=== PATIENT | female | born 2005 | race African-American/Black ===

== ENCOUNTER 2025-06-20 07:48 | Observation (INO) ==
--- NOTE | 2025-06-20 08:00 | Emergency Department Note ---
Impression & Plan Prolonged QT interval, Hypophosphatemia, Hypomagnesemia, Hypokalemia due to excessive gastrointestinal loss of potassium ED Provider Note NAME: GILLIAN CHILDS AGE: 19 SEX: F : 2005 ARRIVES VIA: Walk-In INFORMANT: Patient, ED PROVIDER(S): Tulio Ferreira MD CHIEF COMPLAINT: Nausea vomiting MEDICAL DECISION MAKING: Patient presents with the above. IV was established and blood work was obtained. Patient was ordered IV Zofran and IV fluids. Patient received ice chips. Patient was bradycardic but not complaining of any dizziness and blood pressure is normal. IV was established and blood work was obtained and an EKG was eventually ordered. Patient with a normal white count hemoglobin and platelet count kidney function is unremarkable. Patient with hypokalemia noted. Patient's EKG did show QT prolongation. Magnesium and phosphorus ordered. Patient was ordered IV potassium chloride for replacement. Hypomagnesemia and hypophosphatemia noted. Deferring phosphorus replacement until potassium and mag completed. The patient was ordered 2 g of IV magnesium. Troponin also added negative. Urinalysis does show ketones but does not show signs of obvious infection. Whites and bacteria noted but numerous epithelial cells the patient does not complain of any lower abdominal pain. UDS positive for marijuana. Given the patient's electrolyte abnormalities and QTc prolongation I did speak to on-call hospitalist service patient was admitted by Dr. Chow. Of note the patient's EKG did show some diffuse mild ST elevation but the patient does not have chest pain or shortness of breath patient's troponin is not elevated. Do not believe that this is an acute STEMI at this time. Could be pericarditis but the patient does not complain of chest pain. Discussion w/ other healthcare providers: Dr. Chow inpatient medicine service Prior /Outside records reviewed: none Differential diagnosis: Gastroenteritis, food borne illness, infection, appendicitis, diverticulitis, inflammatory bowel disease, obstruction among others were considered. Diagnostics, as interpreted by me: ECG: Sinus bradycardia, rate of 46, prolonged QT, normal axis, T wave inversions anteriorly. Patient does have trace elevations throughout no obvious STEMI. Cardiac monitoring: An order was placed for continuous cardiac monitoring. The monitor shows a rate of 56 with sinus rhythm. Patient was placed on pulse oximetry Medical decision rules: None Imaging studies: I informally interpreted the patient's KUB does not show evidence of obvious obstruction with formal report to follow. HPI: Patient presents due to concern for vomiting. The patient states that she developed some nausea and associated vomiting around 5 AM this morning. The patient does still feel nauseous. The patient did have 2 episodes of vomiting nonbloody. The patient does admit to drinking 1 alcoholic beverage last evening. She states that she had 1 alva. Denies any tobacco or drugs. She states that she does feel somewhat anxious. She states no recent stress and denies drinking more than 1 alcoholic beverage. Patient denies any upper respiratory symptoms or cough or fever. Patient denies any urinary symptoms. Last menstrual period was 2 weeks ago. She denies any falls or trauma. PAST MEDICAL HISTORY: Scoliosis PAST SURGICAL HISTORY: Spinal fusion surgery SOCIAL HISTORY: [employer] student. Uses alcohol socially. HOME MEDICATIONS: See Below ALLERGIES: See Below VITALS: See Below PHYSICAL EXAMINATION: GENERAL: Fatigued but nontoxic in appearance and in no apparent distress. EYE EXAM: Normal conjunctiva. PERRL, no anisocoria and EOM's grossly intact w/o pain. OROPHARYNX: Moist mucus membranes, grossly normal dentition. NECK: Trachea midline, no stridor. LUNGS: Clear to auscultation. Normal chest wall mechanics. HEART: Bradycardic, no MRG. ABDOMEN: Abdomen soft, non-tender, no masses, no rebound or guarding. BACK: No CVA TTP. SKIN: No rashes and no bruising. UPPER EXTREMITIES: Upper extremities are grossly normal. LOWER EXTREMITIES: Grossly normal, no edema. NEURO EXAM: Awake and alert, follows commands, no obvious facial asymmetry, normal speech, moves all 4 extremities. Past Med/Surg History Problem List (Updated 06/20/25 @ 15:41 by Tulio Ferreira MD) Prolonged QT interval (Acute) Hypophosphatemia (Acute) Hypomagnesemia (Acute) Hypokalemia due to excessive gastrointestinal loss of potassium (Acute) Cannabis use disorder, mild, abuse Intractable vomiting with nausea Surgical History History of lumbar fusion Social History Smoking Status: Current some day smoker Hx Alcohol Use: Yes Hx Substance Use: Yes Preferred Language: Samoan Current Living Situation Comment: [employer] student from [place], lives in the dorm Feels Safe at Home: Yes Do you think of yourself as: straight/heterosexual Sexual Activity Comment: No recent sexual activity within the past 4 weeks Allergies Allergies Allergy/AdvReac Type Severity Reaction Status Date / Time No Known Allergies Allergy Verified 05/02/23 10:00 Home Meds Home Medications Medication Instructions Recorded Confirmed ferrous sulfate 325 mg (65 mg 0 mg PO DAILY 05/02/23 06/20/25 iron) tablet omeprazole 20 mg capsule,delayed 0 mg PO DAILY 05/02/23 06/20/25 release Previous Rx's Medication Instructions Recorded ondansetron 4 mg disintegrating 4 mg PO Q6H PRN nausea and 05/02/23 tablet vomiting #20 tabs Results & Data (ED) Vital Signs Vital Signs - 24 hr 06/20/25 07:50 06/20/25 08:20 06/20/25 08:27 Pulse Rate 47 L Pulse Rate [Apical] 46 L Pulse Rate from SpO2 Sensor Pulse Rhythm Regular Respiratory Rate 18 16 Respiratory Effort / Characteristics Non-Labored Spontaneous Non-Labored Spontaneous Respiratory Depth Normal Normal Respiratory Pattern Regular Blood Pressure 128/93 Blood Pressure [Left Arm] 133/91 Blood Pressure Mean 104 Blood Pressure Mean [Left Arm] 105 Pulse Oximetry 100 99 Oxygen Delivery Method Room Air Room Air Room Air Sepsis Recent Fever Within 48 Hours No Sepsis New/Unexplained Change in Mental Status N/A Sepsis Action Taken by Nursing No Action Required 06/20/25 08:47 06/20/25 08:53 06/20/25 09:00 Pulse Rate 58 L 60 45 L Pulse Rate [Apical] Pulse Rate from SpO2 Sensor 54 L 46 L Pulse Rhythm Respiratory Rate 17 21 Respiratory Effort / Characteristics Respiratory Depth Respiratory Pattern Blood Pressure 123/76 106/61 Blood Pressure [Left Arm] Blood Pressure Mean 101 77 Blood Pressure Mean [Left Arm] Pulse Oximetry 99 100 Oxygen Delivery Method Room Air Room Air Sepsis Recent Fever Within 48 Hours Sepsis New/Unexplained Change in Mental Status Sepsis Action Taken by Nursing 06/20/25 09:00 06/20/25 09:30 06/20/25 09:45 Pulse Rate 39 L 58 L 46 L Pulse Rate [Apical] Pulse Rate from SpO2 Sensor 47 L 47 L Pulse Rhythm Respiratory Rate 12 21 12 Respiratory Effort / Characteristics Respiratory Depth Respiratory Pattern Blood Pressure 106/61 125/86 132/77 Blood Pressure [Left Arm] Blood Pressure Mean 77 99 94 Blood Pressure Mean [Left Arm] Pulse Oximetry 96 96 100 Oxygen Delivery Method Room Air Room Air Room Air Sepsis Recent Fever Within 48 Hours Sepsis New/Unexplained Change in Mental Status Sepsis Action Taken by [facility] Medications Current Medication List: was personally reviewed by me Laboratory Data Attestation: I reviewed the patient's lab results. 06/20/25 08:15 06/20/25 08:15 Lab Results 06/20/25 Range/Units 08:15 WBC 5.09 (4.8-10.8) K/ul RBC 4.41 (4.20-5.40) M/uL Hgb 12.9 (12.0-16.0) g/dl Hct 38.9 (37.0-47.0) % MCV 88.2 (80.0-100.0) fL MCH 29.3 (25.0-34.0) pg MCHC 33.2 (32.0-36.0) g/dL RDW Std Deviation 43.3 (36.4-46.3) fL RDW Coeff of Thomas 13.2 (11.5-14.5) % Plt Count 273 (130-400) K/uL MPV 9.3 L (9.4-12.4) fL Immature Gran % (Auto) 0.2 % Neut % (Auto) 46.7 % Lymph % (Auto) 39.1 % Boyd % (Auto) 12.4 % Eos % (Auto) 0.8 % Baso % (Auto) 0.8 % Neut # (Auto) 2.38 (1.40-6.50) K/uL Lymph # (Auto) 1.99 (1.20-3.40) K/uL Boyd # (Auto) 0.63 H (0.11-0.59) K/uL Eos # (Auto) 0.04 (0.00-0.50) K/uL Baso # (Auto) 0.04 (0.00-0.20) K/uL Immature Gran # (Auto) 0.01 (0.01-0.20) K/uL Sodium 137 (136-145) mmol/L Potassium 3.2 L (3.5-5.1) mmol/L Chloride 104 (98-107) mmol/L Carbon Dioxide 22 (21-32) mmol/L Anion Gap 11 (3-11) BUN 9 (6-23) mg/dl Creatinine 0.73 (0.6-1.2) mg/dl Est Cr Clr Drug Dosing 119.5 ml/min eGFR 120.66 BUN/Creatinine Ratio 12.3 (10-20) Glucose 125 H (70-99(Fasting)) mg/dl Calcium 9.5 (8.6-10.3) mg/dl Phosphorus 1.8 L (2.5-4.9) mg/dl Magnesium 1.6 L (1.7-2.4) mg/dl Total Bilirubin 0.6 (0.2-1.0) mg/dl AST 20 (13-39) U/L ALT 15 (7-52) U/L Alkaline Phosphatase 45 (34-104) U/L Troponin I High Sens < 2.3 (0-14) pg/ml Total Protein 8.0 (6.0-8.3) gm/dl Albumin 4.6 (3.4-5.0) gm/dl Globulin 3.4 (2.5-4.0) gm/dl Albumin/Globulin Ratio 1.4 (0.9-2) Lipase 18 (11-82) U/L HCG, Qual Negative (Negative) Administered Medications Lactated Ringer's (Lr) 1,000 mls @ 110 mls/hr IV .Q9H6M LARS Stop: 06/21/25 12:59 Last Admin: 06/20/25 13:44 Dose: 110 mls/hr Documented By: yang Metoclopramide HCl (Metoclopramide Hcl Inj 5 Mg/Ml 2 Ml Vial) 10 mg IV Q6H PRN PRN Reason: Nausea Stop: 07/20/25 11:53 Last Admin: 06/20/25 12:18 Dose: 10 mg Documented By: yang Discontinued Medications Hydroxyzine HCl (Hydroxyzine Hcl 25 Mg Tab) 25 mg PO NOW STA Stop: 06/20/25 10:53 Last Admin: 06/20/25 10:57 Dose: 25 mg Documented By: DRAKE Sodium Chloride (Nss) 1,000 mls @ 999 mls/hr IV .Q1H1M LARS Stop: 06/20/25 09:15 Last Infusion: 06/20/25 09:31 Dose: Infused Documented By: Admin: 10/12/25 08:18 Dose: 999 mls/hr Documented By: JAMAR Potassium Chloride (K Cedric / Wtr) 10 meq in 100 mls @ 100 mls/hr IV Q1H LARS Stop: 06/20/25 11:14 Last Infusion: 06/20/25 12:00 Dose: Infused Documented By: yang Admin: 06/20/25 10:36 Dose: 100 mls/hr Documented By: Infusion: 06/20/25 10:25 Dose: Infused Documented By: Admin: 06/20/25 09:25 Dose: 100 mls/hr Documented By: JAMAR Magnesium Sulfate/Dextrose (Magnesium Sulfate / D5w) 1 gm in 100 mls @ 200 mls/hr IV Q30M LARS Stop: 06/20/25 10:43 Last Infusion: 06/20/25 11:16 Dose: Infused Documented By: yang Admin: 06/20/25 10:36 Dose: 200 mls/hr Documented By: Infusion: 06/20/25 10:32 Dose: Infused Documented By: Admin: 06/20/25 10:02 Dose: 200 mls/hr Documented By: JAMAR Pantoprazole Sodium (Protonix) 40 mg in 10 mls @ 5 mls/min IV NOW ONE Stop: 06/20/25 12:52 Last Admin: 06/20/25 13:44 Dose: 5 mls/min Documented By: yang Lorazepam (Lorazepam 1 Mg/1 Ml Syr Ed Inj Use) 0.5 mg IV ONE STA Stop: 06/20/25 08:38 Last Admin: 06/20/25 09:22 Dose: Not Given Documented By: JAMAR Ondansetron HCl (Ondansetron Inj 2 Mg/Ml 2 Ml Vial) 4 mg IV NOW STA Stop: 06/20/25 08:08 Last Admin: 06/20/25 08:16 Dose: 4 mg Documented By: JAMAR Imaging Data Radiologist's Impression: KUB X-Ray 06/20/25 08:45 HISTORY: Abdominal pain. Nausea, vomiting, and diarrhea. TECHNIQUE: Supine AP abdominal radiographs. COMPARISON: CT of the abdomen pelvis with contrast dated 05/02/2023. FINDINGS: Paucity of small bowel gas. No gas-filled dilated loops of small bowel. No significant formed stool in the colon. Calcified pelvic phleboliths. No suspicious calcifications. Lung bases are clear. Radiopaque umbilical jewelry. Lumbar levoscoliosis with postsurgical changes of posterior instrumented fusion. IMPRESSION: * No acute findings. Paucity of small bowel gas limits evaluation. Electronically signed by Oneal Rosas 06-20-2025 09:45 AM Discharge Plan Visit Data Chief Complaint: GI Assessment Stated Complaint: STOMACH PAIN, ACID REFLUX ED Provider: Tulio Ferreira Discharge Problem: Prolonged QT interval, Hypophosphatemia, Hypomagnesemia, Hypokalemia due to excessive gastrointestinal loss of potassium Patient Disposition: Admitted As Inpatient Condition: Good Discharge Instructions Interventions: ED Discharge Assessment Last Done: 06/20/25 10:38
[2025-06-20] MEDS: ONDANSETRON INJ 2 MG/ML 2 ML VIAL IV STA (08:16)
[2025-06-20] MEDS: SODIUM CHLORIDE 0.9% 1,000 ML IV SCH (08:18)
[2025-06-20 08:36] LABS: Hematocrit (blood only) 38.9 % (37.0-47.0); Hemoglobin 12.9 g/dl (12.0-16.0); Immature Granulocytes # (auto) 0.01 K/uL (0.01-0.20); Immature Granulocytes % (auto) 0.2 %; Mean Corpuscular Hemoglobin 29.3 pg (25.0-34.0); Mean Corpuscular Volume 88.2 fL (80.0-100.0); Platelet Count 273 K/uL (130-400); RDW Standard Deviation 43.3 fL (36.4-46.3); Red Blood Count 4.41 M/uL (4.20-5.40); White Blood Count 5.09 K/ul (4.8-10.8)
[2025-06-20 08:53] LABS: Pregnancy Test, Serum Negative (Negative)
[2025-06-20 08:56] LABS: Alanine Aminotransferase 15 U/L (7-52); Albumin Globulin Ratio 1.4 (0.9-2); Albumin Level 4.6 gm/dl (3.4-5.0); Alkaline Phosphatase 45 U/L (34-104); Anion Gap 11 (3-11); Bilirubin,Total 0.6 mg/dl (0.2-1.0); Blood Urea Nitrogen 9 mg/dl (6-23); Calcium 9.5 mg/dl (8.6-10.3); Carbon Dioxide 22 mmol/L (21-32); Chloride 104 mmol/L (98-107); Creatinine Clr Calc Pharmacy 119.5 ml/min; Globulin 3.4 gm/dl (2.5-4.0); Glucose 125 mg/dl (70-99(Fasting)); Lipase 18 U/L (11-82); Potassium 3.2 mmol/L (3.5-5.1); Sodium 137 mmol/L (136-145); Total Protein 8.0 gm/dl (6.0-8.3)
[2025-06-20] MEDS: LORazepam 1 MG/1 ML SYR ED Inj Use IV STA (09:22)
[2025-06-20] MEDS: POTASSIUM CHLORIDE / WTR 10 MEQ/100 ML PLCT IV SCH (09:25)
[2025-06-20 09:39] LABS: Magnesium 1.6 mg/dl (1.7-2.4)
[2025-06-20 09:42] LABS: Appearance Urine Clear (Clear); Bacteria Urine Automated 3+ (None Seen); Glucose Urine UA Negative (Negative); RBC Urine Automated 0-2 /hpf (0-2)
--- NOTE | 2025-06-20 09:45 | XRay Report ---
HISTORY: Abdominal pain. Nausea, vomiting, and diarrhea. TECHNIQUE: Supine AP abdominal radiographs. COMPARISON: CT of the abdomen pelvis with contrast dated 05/02/2023. FINDINGS: Paucity of small bowel gas. No gas-filled dilated loops of small bowel. No significant formed stool in the colon. Calcified pelvic phleboliths. No suspicious calcifications. Lung bases are clear. Radiopaque umbilical jewelry. Lumbar levoscoliosis with postsurgical changes of posterior instrumented fusion. IMPRESSION: * No acute findings. Paucity of small bowel gas limits evaluation. Electronically signed by Oneal Rosas 06-20-2025 09:45 AM
[2025-06-20] MEDS: MAGNESIUM SULFATE / D5W 1 GM/100 ML BAG IV SCH (10:02)
[2025-06-20 10:19] LABS: Amphetamines+Metham, Urine Neg (Neg); MDMA (Ecstacy), Urine Neg (Neg); Marijuana, Urine Pos (Neg)
--- NOTE | 2025-06-20 11:18 | History & Physical Report ---
Date of Service June 20, 2025 Assessment & Plan (1) Intractable vomiting with nausea: (2) Cannabis use disorder, mild, abuse: (3) Hypokalemia due to excessive gastrointestinal loss of potassium: (4) Hypomagnesemia: (5) Hypophosphatemia: (6) Prolonged QT interval: Plan In summary this is a 19-year-old female presents with persistent nausea and vomiting, found to have electrolyte abnormalities associated with QTc prolongation #Intractable emesis with nausea // Multiple electrolyte abnormalities // QTc prolongation Regarding the patient's presenting complaint, suspect this is likely consequential of a combination of their intake in the past 24 hours with sushi and an unspecified source of marijuana inhaled; the electrolyte or maladies are likely consequential of the patient's emesis and are replaced with reassessment pending on 06/21; the patient's EKG abnormalities are of an unclear cause, but at this time most likely consequential of electrolyte abnormalities, their bradycardia is likely their normal rate given their general healthy state Reassess electrolytes on 06/21 Continuous cardiac telemetry Continue metoclopramide as needed for nausea given its neutral effect on QTc prolongation Continue pantoprazole 40 mg IV daily for gastritis prevention Admission and Anticipated Discharge Date Admission Date: June 20, 2025 History of Present Illness Chief Complaint: Abdominal pain, nausea and emesis Primary Care Provider: Rust Ms. 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 She denies any recent ill contacts, fever, chills, changes in appetite, altered bowel movements, hematemesis, bilious emesis, hematochezia, melanotic stool, recent travel. The patient does endorse eating sushi at approximately 1500 hours and taking a "hit" of a friend's "yony" at some time on 06/19; she is unsure of where this individual procures their marijuana. They are not currently sexually active, and their most recent menstrual cycle 5-6 days prior to presentation. At the time of my exam, the patient endorses "butterflies in their stomach" as a sense of discomfort, not consistent with previously experienced heartburn. They feel a sense of anxiety, but cannot specify a triggering cause or expand upon this symptom. Allergies Allergy/AdvReac Type Severity Reaction Status Date / Time No Known Allergies Allergy Verified 05/02/23 10:00 Home Medications Medication Instructions Recorded Confirmed Type ferrous sulfate 325 mg (65 mg 0 mg PO DAILY 05/02/23 06/20/25 History iron) tablet omeprazole 20 mg capsule,delayed 0 mg PO DAILY 05/02/23 06/20/25 History release ondansetron 4 mg disintegrating 4 mg PO Q6H PRN nausea and 05/02/23 06/20/25 Rx tablet vomiting #20 tabs Past Med/Surg History Problem List (Updated 06/20/25 @ 15:11 by William Chow DO) Prolonged QT interval Hypophosphatemia Hypomagnesemia Hypokalemia due to excessive gastrointestinal loss of potassium Cannabis use disorder, mild, abuse Intractable vomiting with nausea Surgical History History of lumbar fusion Social History (Updated 06/20/25 @ 15:01 by William Chow DO) Smoking Status: Current some day smoker Hx Alcohol Use: Yes Hx Substance Use: Yes Preferred Language: Mosotho Current Living Situation Comment: [employer] student from [place], lives in the dorm Feels Safe at Home: Yes Do you think of yourself as: straight/heterosexual Sexual Activity Comment: No recent sexual activity within the past 4 weeks Review of Systems Review of Systems: Review of constitutional, cardiovascular, pulmonary, gastrointestinal, genitourinary systems was unremarkable except for pertinent positive and negative findings and detailed above Physical Exam Physical Exam: General: Young adult female in no acute distress Vital Signs: Reviewed; persistently bradycardic but without associated symptoms HEENT: Extraocular motion intact; pupils equally round reactive to light; mucous membranes tacky Pulmonary: Symmetric chest wall excursion without restriction; clear to auscultation bilaterally Cardiovascular: Regular rate and rhythm without murmurs, rubs, or gallops; S1 and S2 normal; right radial pulse 2+ with brisk capillary refill Gastrointestinal: Soft, nondistended; normal bowel sounds throughout without tenderness to palpation Results & Data Results & Data Vital Signs (Past 12 Hours) Vital Signs Pulse Pulse Resp BP BP Pulse Ox O2 Del Method 06/20/25 09:45 46 L 12 132/77 100 Room Air 06/20/25 09:30 58 L 21 125/86 96 Room Air 06/20/25 09:00 39 L 12 106/61 96 Room Air 06/20/25 09:00 45 L 21 106/61 100 Room Air 06/20/25 08:53 60 06/20/25 08:47 58 L 17 123/76 99 Room Air 06/20/25 08:27 46 L 16 133/91 99 Room Air 06/20/25 08:20 Room Air 06/20/25 07:50 47 L 18 128/93 100 Room Air Laboratory Results Hypomagnesemic, hypophosphatemic, hypokalemic ECG Additional Comments: Bradycardic rate; normal axis; early R wave progression; T wave inversion in V1 through V3; ST segment elevation by 1 mm or less in leads I, 2, V2, V3, V4, V5, V6; prolonged QT interval of 568 ms Code Status & VTE Plan VTE Prophylaxis Plan VTE Prophylaxis will be ordered: No Reason for no VTE drug order: Treatment not indicated PG Care Time/CCT Total # of Minutes Spent Total Time Spent with Patient: Total time spent is greater than 50% in coordination of care (as documented) at patient's floor/unit and/or counseling patient: Coding Level of Care Code 78734 INT INP/OBS CARE 2/55MIN Diagnoses Intractable vomiting with nausea R11.2 Cannabis use disorder, mild, abuse F12.10 Hypokalemia due to excessive gastrointestinal loss of potassium E87.6 Hypomagnesemia E83.42 Hypophosphatemia E83.39 Prolonged QT interval R94.31
[2025-06-20] MEDS: METOCLOPRAMIDE HCL INJ 5 MG/ML 2 ML VIAL IV PRN (12:18)
[2025-06-20] MEDS: LACTATED RINGER'S 1,000 ML IV SCH (13:44)
[2025-06-20] MEDS: PANTOprazole 40 MG/10 ML SYR IV ONE (13:44)
[2025-06-20] MEDS: PROMETHAZINE 25 MG/51 ML BAG IV PRN (18:13)
--- NOTE | 2025-06-20 19:06 | Electrocardiogram Report ---
Test Reason : Blood Pressure : */* mmHG Vent. Rate : 46 BPM Atrial Rate : 46 BPM P-R Int : 158 ms QRS Dur : 94 ms QT Int : 568 ms P-R-T Axes : 65 61 42 degrees QTcB Int : 497 ms Sinus bradycardia with with sinus arrhythmia ST elevation, consider early repolarization, pericarditis, or injury T wave abnormality, consider anterior ischemia Prolonged QT Abnormal ECG No previous ECGs available Confirmed by Eric Samuel ([id number]) on 06/20/2025 7:05:54 PM Referred By: Confirmed By: Eric Samuel
--- NOTE | 2025-06-21 07:26 | Hospitalist Progress Note ---
Date of Service June 21, 2025 Assessment & Plan (1) Intractable vomiting with nausea: (2) Cannabis use disorder, mild, abuse: (3) Hypokalemia due to excessive gastrointestinal loss of potassium: (4) Hypomagnesemia: (5) Hypophosphatemia: (6) Prolonged QT interval: Plan In summary this is a 19-year-old female presents with persistent nausea and vomiting, found to have electrolyte abnormalities associated with QTc prolongation #Intractable emesis with nausea // Multiple electrolyte abnormalities // QTc prolongation Regarding the patient's presenting complaint, suspect this is likely consequential of a combination of their intake in the past 24 hours with sushi and an unspecified source of marijuana inhaled; the electrolyte or maladies are likely consequential of the patient's emesis and are replaced with reassessment pending on 06/21; the patient's EKG abnormalities are of an unclear cause, but at this time most likely consequential of electrolyte abnormalities, their bradycardia is likely their normal rate given their general healthy state Reassess electrolytes on 06/21 Continuous cardiac telemetry Continue metoclopramide as needed for nausea given its neutral effect on QTc prolongation Continue pantoprazole 40 mg IV daily for gastritis prevention Admission and Anticipated Discharge Date Admission Date: June 20, 2025 Subjective Ms. 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 She denies any recent ill contacts, fever, chills, changes in appetite, altered bowel movements, hematemesis, bilious emesis, hematochezia, melanotic stool, recent travel. The patient does endorse eating sushi at approximately 1500 hours and taking a "hit" of a friend's "yony" at some time on 06/19; she is unsure of where this individual procures their marijuana. They are not currently sexually active, and their most recent menstrual cycle 5-6 days prior to presentation. Review of Systems Review of Systems: Review of constitutional, cardiovascular, pulmonary, gastrointestinal, genitourinary systems was unremarkable except for pertinent positive and negative findings and detailed above Physical Exam Physical Exam: General: Young adult female in no acute distress Vital Signs: Reviewed; persistently bradycardic but without associated symptoms HEENT: Extraocular motion intact; pupils equally round reactive to light; mucous membranes tacky Pulmonary: Symmetric chest wall excursion without restriction; clear to auscultation bilaterally Cardiovascular: Regular rate and rhythm without murmurs, rubs, or gallops; S1 and S2 normal; right radial pulse 2+ with brisk capillary refill Gastrointestinal: Soft, nondistended; normal bowel sounds throughout without tenderness to palpation Results & Data Results & Data Vital Signs (Past 12 Hours) Vital Signs Temp Pulse Pulse Resp BP BP Pulse Ox 06/21/25 02:54 36.8 C 63 16 101/59 L 99 06/20/25 23:43 81 06/20/25 22:59 36.4 C L 62 16 104/58 L 97 06/20/25 19:33 36.6 C 54 L 16 102/62 100 O2 Del Method 06/21/25 02:54 Room Air 06/20/25 23:43 06/20/25 22:59 Room Air 06/20/25 19:33 Room Air PG Care Time/CCT Total # of Minutes Spent Total Time Spent with Patient: Total time spent is greater than 50% in coordination of care (as documented) at patient's floor/unit and/or counseling patient: Coding Diagnoses Intractable vomiting with nausea R11.2 Cannabis use disorder, mild, abuse F12.10 Hypokalemia due to excessive gastrointestinal loss of potassium E87.6 Hypomagnesemia E83.42 Hypophosphatemia E83.39 Prolonged QT interval R94.31
[2025-06-21 08:31] LABS: Albumin Level 4.1 gm/dl (3.4-5.0); Anion Gap 5.0 (3-11); Blood Urea Nitrogen 7.0 mg/dl (6-23); Calcium 9.2 mg/dl (8.6-10.3); Carbon Dioxide 27.0 mmol/L (21-32); Chloride 106.0 mmol/L (98-107); Creatinine Clr Calc Pharmacy 99.2 ml/min; Glucose 89.0 mg/dl (70-99(Fasting)); Magnesium 2.1 mg/dl (1.7-2.4); Potassium 3.7 mmol/L (3.5-5.1); Sodium 138.0 mmol/L (136-145)
--- NOTE | 2025-06-21 13:35 | Discharge Summary ---
Discharge Summary Date of Service June 21, 2025 Principal Dx & Hospital Course #1 = Principal Diagnosis (1) Intractable vomiting with nausea: (2) Cannabis use disorder, mild, abuse: (3) Hypokalemia due to excessive gastrointestinal loss of potassium: (4) Hypomagnesemia: (5) Hypophosphatemia: (6) Prolonged QT interval: Plan In summary this is a 19-year-old female who presented with persistent nausea and vomiting, found to have electrolyte abnormalities associated with QTc prolongation. #Intractable emesis with nausea // Multiple electrolyte abnormalities // QTc prolongation Regarding the patient's presenting complaint, suspect it was most likely consequential of a combination of their intake in the day prior to presentation as well as use of marijuana from an unspecified source; patient's EKG abnormalities have resolved with replacement of these electrolytes, and they have been able to tolerate oral intake this morning. Admission HPI Per Admitting Provider Ms. Palma is a 19-year-old female whose active medical conditions include cannabis use disorder who presented to the 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 She denies any recent ill contacts, fever, chills, changes in appetite, altered bowel movements, hematemesis, bilious emesis, hematochezia, melanotic stool, recent travel. The patient does endorse eating sushi at approximately 1500 hours and taking a "hit" of a friend's "yony" at some time on 06/19; she is unsure of where this individual procures their marijuana. They are not currently sexually active, and their most recent menstrual cycle 5-6 days prior to presentation. At the time of my exam, the patient endorses "butterflies in their stomach" as a sense of discomfort, not consistent with previously experienced heartburn. They feel a sense of anxiety, but cannot specify a triggering cause or expand upon this symptom. Discharge Exam General: Young adult female in no acute distress Vital Signs: Reviewed HEENT: Extraocular motion intact; pupils equally round reactive to light; mucous membranes tacky Pulmonary: Symmetric chest wall excursion without restriction; clear to auscultation bilaterally Cardiovascular: Regular rate and rhythm without murmurs, rubs, or gallops; S1 and S2 normal; right radial pulse 2+ with brisk capillary refill Gastrointestinal: Soft, nondistended; normal bowel sounds throughout without tenderness to palpation Discharge Plan Discharge Items Patient Disposition: Home - Self-Care Reason For Visit: SEVERE ELECTROLYTE ABNORMALITIES WITH PROLONGED QT Discharge Diagnosis: Severe electrolyte abnormalities consequential of gastrointestinal losses Condition on Discharge: Good Activity: Resume your previous activity Non-emergency contact: Primary Care Provider Call non-emergency contact if: you have any medication questions and your symptoms worsen Follow-up/Referrals: [facility] [Primary Care Provider] - Diet: Regular Fluids: 2000ml (8 cups) Addtl Attending Provider Instructions: You were admitted to [facility] for persistent nausea and vomiting resulting in multiple electrolyte abnormalities and EKG changes, requiring observation overnight. With respect to your electrolyte abnormalities, these appear to have improved with appropriate replacement therapy provided in the emergency department. As far as a precipitating cause, suspect it is likely related to a combination of dietary, and substance use choices made on the evening prior to your persistent nausea and vomiting. We recommended against continued use of cannabis, though this is likely not cyclic vomiting syndrome which can be seen with chronic cannabis use, the strain that was used, in combination with alcohol and other dietary choices made prior to your presentation likely precipitated your symptoms. With respect to your EKG changes, suspect this is likely consequential with multiple electrolyte abnormalities that were noted. Thank you for choosing [facility] as your healthcare provider. Pending Studies at Discharge: No Stand-Alone Forms: My [facility], Work/School Release, Smoking Cessation Medications and DC Order Prescriptions: Discontinued ferrous sulfate 325 mg (65 mg iron) Tablet 0 mg PO DAILY Patient Comments: 06/20- otc/no fill history unable to verify omeprazole 20 mg Capsule,Delayed Release(Dr/Ec) 0 mg PO DAILY Patient Comments: 06/20- otc/no fill history unable to verify Rx Instructions: Pt unsure of strength ondansetron 4 mg tablet,disintegrating 4 mg PO Q6H PRN (Reason: nausea and vomiting) Qty: 20 0RF Patient Comments: 06/20- no fill history unable to verify Discharge Orders: Discharge Order (Routine); Ordered 06/21/25 Ordered By: William Metzger/Other Patient Handouts: Ondansetron Disintegrating Oral Tablet Admission Data Admit Date/Time: 06/20/25 10:15 Attending Provider: William Chow Admit Provider: William Chow Primary Care Provider: [facility] Other Providers: William Chow Other Interventions: Discharge Summary Assessment (RN) Last Done: 06/21/25 09:08 Hospital Stay Data Consultations 06/20/25 16:24 ED Decision to Admit Stat Pending Results Patient Have Any Pending Studies at Discharge: No Discharge Instructions Given to Patient (Per Discharging Provider) You were admitted to [facility] for persistent nausea and vomiting resulting in multiple electrolyte abnormalities and EKG changes, requiring observation overnight. With respect to your electrolyte abnormalities, these appear to have improved with appropriate replacement therapy provided in the emergency department. As far as a precipitating cause, suspect it is likely related to a combination of dietary, and substance use choices made on the evening prior to your persistent nausea and vomiting. We recommended against continued use of cannabis, though this is likely not cyclic vomiting syndrome which can be seen with chronic cannabis use, the strain that was used, in combination with alcohol and other dietary choices made prior to your presentation likely precipitated your symptoms. With respect to your EKG changes, suspect this is likely consequential with multiple electrolyte abnormalities that were noted. Thank you for choosing [facility] as your healthcare provider. Total Time Total Time Spent Total Time Spent (In Minutes): I personally spent 40 minutes in today's discharge including bedside counseling, physical exam, review of laboratory assessment and repeat EKG, coordination of care upon the time of discharge Coding Level of Care Code 06057 INP/OBS DISCH >30 MIN Diagnoses Intractable vomiting with nausea R11.2 Cannabis use disorder, mild, abuse F12.10 Hypokalemia due to excessive gastrointestinal loss of potassium E87.6 Hypomagnesemia E83.42 Hypophosphatemia E83.39 Prolonged QT interval R94.31
[2025-06-23 17:02] LABS: Marijuana Quant, GCMS Urine 101 ng/mL (<5)
== END 2025-06-21 09:45 | disposition home or self-care (01) ==
LOC: EDINP 07:48 → ED 07:48 → 2N 10:38